=== PATIENT | female | born 1975 | race Caucasian/White ===

== ENCOUNTER 2024-01-21 20:01 | Emergency (ER) | payer OTHER, SELFPAY ==
--- NOTE | ~2024-01-21 | CT_ITS ---
CT of the Pelvis: Indication: Hamstring tendon rupture/hematoma Technique: 2.5 mm axial scans were obtained through the pelvis following intravenous administration of 100 cc of Omnipaque 350. Dose reduction technique was used on this scan by utilizing automated exp osure control and iterative reconstruction technique. The dose-length product (DLP) was 1171.40 mGy-c m. Findings: Urinary bladder unremarkable. No adnexal mass seen. No ascites. Visualized bowel loops are unremarkable. No pelvic lymphadenopathy seen. Inferior portions of the visualized kidneys are unremar kable. There is edematous change of the proximal left hamstring musculature, with suspected hematoma in the left hamstring tendon origin region measuring up to approximately 4.1 x 2.4 cm. Visualized musculatur e of the right side is unremarkable. Impression: Edematous change of the proximal left hamstring musculature, with suspected 4.1 x 2.4 cm hematoma at the left tension tendon origin region. Recommend MRI of the left pelvis/hip to more directly/better a ssess the hamstring tendons themselves. Reviewed, dictated and finalized at location . Impression: Edematous change of the proximal left hamstring musculature, with suspected 4.1 x 2.4 cm hematoma at the left tension tendon origin region. Recommend MRI of t he left pelvis/hip to more directly/better assess the hamstring tendons themsel ves.
[2024-01-21 20:20] VITALS: BP 132/88; PULSE 70; RESP 20; TEMP 36.8; O2SAT 99
[2024-01-22 00:21] VITALS: BP 138/96; PULSE 83; RESP 16; TEMP 36.6; O2SAT 98
[2024-01-22] MEDS: ACETAMINOPHEN 500 MG TABLET 1000 MG PO (01:07)
[2024-01-22] MEDS: methocarbamoL 500 MG TABLET 1000 MG PO (01:07)
[2024-01-22] MEDS: ONDANSETRON INJ 4 MG/2 ML VIAL IV PUSH (01:08)
[2024-01-22] MEDS: KETOROLAC 30 MG/ML VIAL (*BKC) IV PUSH (01:08)
--- NOTE | 2024-01-22 01:12 | PC.NURSE ---
patient refuses morphine and states that she is allergic and gives her hives. Notified EDP CHAPO Cherry and added allergy to patient's chart
[2024-01-22] MEDS: fentaNYL CITRATE INJ (*CRX) 100 MCG/2 ML VIAL 25 MCG IV PUSH ×2 (01:44→03:51)
--- NOTE | 2024-01-22 01:51 | ED.LOWEXIN ---
HPI - Extremity Injury (Lower) General Chief Complaint: Extremity Injury, Lower Stated Complaint: leg injury Time Seen by Provider: 01/22/24 00:22 Source: patient Mode of arrival: ambulatory Limitations: no limitations History of Present Illness HPI Narrative: Patient is a 48-year-old female who presents the ED with report of left lower extremity pain. Patient reports she was playing kickball when she went to run to kick the ball and felt a pop in her left posterior thigh. Complains of severe pain since then. Difficulty ambulating due to the pain. She did take ibuprofen around 6:00 p.m. without improvement. She has not had anything further for the pain. Pain present throughout left buttock, left posterior thigh, radiating down the leg. Denies numbness. Denies any other injuries. Related Data Allergies Allergy/AdvReac Type Severity Reaction Status Date / Time amoxicillin Allergy Hives Verified 01/21/24 20:28 morphine Allergy Itching Verified 01/22/24 01:26 Review of Systems Review of Systems: All systems reviewed & are unremarkable except as noted in HPI. All systems reviewed & are unremarkable except as noted in HPI and below Exam Narrative: GENERAL: Uncomfortable appearing, obese with BMI of 39.7, in moderate acute distress due to pain. HEAD: Normocephalic, atraumatic. RESPIRATORY: Airway patent, respirations nonlabored CARDIOVASCULAR: Regular rate and rhythm without murmurs, rubs, or gallops. Pedal pulses intact. MUSCULOSKELETAL: No gross deformities. Limited range of motion of left hip and left knee flexion/extension. Holding leg in slightly flexed and abducted position. Diffuse tenderness to palpation throughout left posterior thigh. Moderate sized hematoma present to proximal posterior thigh. No significant bruising noted. Sensation intact throughout extremity. No bony tenderness over L hip or L knee. SKIN: Warm, dry, normal color. NEURO: A&O X3. Speech clear. PSYCHIATRIC: Anxious, tearful. Normal interaction. Course Vital Signs Vital signs: Vital Signs Temperature 98.2 F 01/21/24 20:20 Pulse Rate 70 01/21/24 20:20 Respiratory Rate 01/21/24 20:20 Blood Pressure 132/88 01/21/24 20:20 Pulse Oximetry 99 01/21/24 20:20 Oxygen Delivery Room Air 01/21/24 20:20 Temperature 98 F 01/22/24 02:36 Pulse Rate 66 01/22/24 02:36 Respiratory Rate 16 01/22/24 02:36 Blood Pressure 131/89 01/22/24 02:36 Pulse Oximetry 97 01/22/24 02:36 Oxygen Delivery Room Air 01/21/24 20:20 MDM - Extremity Injury (Lower) MDM Narrative Medical decision making narrative: Patient presented to ED with left lower extremity injury from playing kickball, pain/hematoma to L posterior thigh. Limited ROM d/t pain. Patient very uncomfortable appearing, tearful. Pain medication ordered. Will obtain CT imaging to try to further evaluate for injury. CT scan showing moderate left hamstring avulsion injury. Recommended MRI for further evaluation. Will discuss with Orthopedics. Pain improved with supportive therapy in the ED. Attempted to contact orthopedics here x2, however did not receive a call back. I also attempted to contact [facility] Orth[facility], however unable to speak to an direct support specialist at this time of the night. Patient will be discharged at this time. She feels comfortable doing so. Derrick bandage was placed in the ED. Patient given crutches. Will be discharged with pain medication and muscle relaxers. Advised to contact orthopedic office 1st thing in the morning to make follow-up appointment. She was given strict return precautions. Discharged in stable condition. Medical Records Attestation: I reviewed the patient's medical records. Lab Data Attestation: I reviewed the patient's lab results. 01/22/24 01:52 Labs: Lab Results 01/22/24 Range/Units 01:52 Creatinine 1.00 (0.7-1.2) mg/dL Estim Creat Clear Calc 64 ml/min Estimated GFR 59 (59 - )
[2024-01-22 01:54] LABS: Estimated CRCL calculation 64 ml/min; Estimated Glomerular Filt Rate 59
[2024-01-22 02:36] VITALS: BP 131/89; PULSE 66; RESP 16; TEMP 36.6; O2SAT 97
[2024-01-22 04:07] VITALS: BP 137/77; PULSE 77; RESP 18; TEMP 36.6; O2SAT 99
[2024-01-22] MEDS: oxyCODONE HCL (*CRX) 5 MG TAB IR PO (04:52)
== END 2024-01-22 05:09 | disposition home or self-care (01) ==
PROVIDERS: Emergency Provider Physician Assistant
DX: S76.392A Other specified injury of muscle, fascia and tendon of the posterior muscle group at thigh level, left thigh, initial encounter (principal); X50.9XXA Other and unspecified overexertion or strenuous movements or postures, initial encounter; Y93.6A Activity, physical games generally associated with school recess, summer camp and children
CPT/HCPCS: 72193; 96374; 96375; 96376; 99284; A9270; J1885; J2405; J3010; Q9967